=== PATIENT | male | born 1985 | race African-American/Black ===

== ENCOUNTER 2019-02-03 04:36 | Emergency (ER) | payer SELFPAY ==
[~2019-02-03] VITALS: Ht 172.7 cm; Wt 91.2 kg
[~2019-02-03 04:36] MED LIST: Thiamine HCl 100 MG in D5W 55 ML IVPB STA
[2019-02-03 04:40] VITALS: BP 120/60
--- NOTE | 2019-02-03 04:40 | NUR ---
ED Nurse Note: pt brought in by [facility] due to finding pt on the street and was uncoherent . pt is arousable to light pain. VSS.
[2019-02-03] MEDS ORDERED: Thiamine HCl 100mg/ml 2 ml Inj ONE (04:46)
--- NOTE | 2019-02-03 04:54 | Emergency Room Report ---
History of Present Illness General Chief Complaint: Alcohol Intoxication Source: EMS (Jun Mcmanus MD) Present Illness HPI The patient is brought in by [facility]. Apparently he was in the hallway of her apartment trying to get into a door. He thought that he was in [place]. They claim that his GCS was 15 however even though he was disoriented. During transport he became more unresponsive. He is vomiting. There is obvious coffee -ground material around his mouth. The patient is unable to give a history. They do not perform an Accu-Chek. They believe that the patient's been drinking alcohol. (Jun Mcmanus MD) Allergies: Coded Allergies: UNABLE TO ASSESS (Unverified , 02/03/19) Patient History Limited by: medical condition Past Medical History: see triage record Social History: Reports: alcohol use Social History Narrative Apparently from [place] Reviewed Nursing Documentation: PMH: Agreed; PSxH: Agreed (Jun Mcmanus MD) Nursing Documentation-PMH Past Medical History Deferred: Pt Cognitively Impaired (Jun Mcmanus MD) Review of Systems All Other Systems: limited (Jun Mcmanus MD) Physical Exam Vital Signs Date Time Temp Pulse Resp B/P (MAP) Pulse Ox O2 Delivery O2 Flow Rate FiO2 02/03/19 04:21 98.4 100 18 115/58 (77) 98 Room Air Sp02 EP Interpretation: reviewed, normal General Appearance: lethargic, other - GCS 13, Stupor Head: normocephalic, atraumatic Eyes: bilateral eye PERRL, bilateral eye abnormal EOM - Nystagmus, bilateral eye Scleral Injection ENT: moist mucus membranes - Gag present Neck: supple Respiratory: lungs clear, normal breath sounds Cardiovascular #1: regular rate, rhythm Cardiovascular #2: 2+ radial (R) Gastrointestinal: non tender, soft, other - Vomiting guaiac positive coffee grounds and foodstuff Genitourinary: no CVA tenderness Musculoskeletal: back normal Neurologic: DTRs symmetric - Decreased, sensory intact - To pain with withdrawal, no Babinski, other - Stupor, occasionally wakes and has slurred speech, nystagmus Psychiatric: other - Lethargic Skin: no rash (Jun Mcmanus MD) Medical Decision Making Diagnostic Impression: Primary Impression: Stupor Additional Impressions: UGI bleed Alcohol intoxication Qualified Codes: F10.929 - Alcohol use, unspecified with intoxication, unspecified ER Course Patient presents with altered level of consciousness vomiting guaiac positive material and possible alcohol ingestion. Differential includes alcohol intoxication, alcohol gastritis, electrolyte imbalance, PCP ingestion amongst other toxic compounds, head injury amongst others. Evaluation with EKG, CT of the head, chest x-ray and labs. Patient will be treated with IV hydration, Pepcid, thiamine and Zofran. Repeat neurologic evaluations need to be performed. Patient transiently combative. Restraints initially ordered but then not needed as patient again became lethargic. Gag is present and the patient is protecting his airway. EKG without injury. Labs significant for positive blood alcohol of 121 and positive THC. Glucose 145. Chest x-ray clear abdomen paucity of gas. Patient still lethargic. Signed out to Dr. Price Laboratory Tests Test 02/03/19 04:40 02/03/19 05:00 White Blood Count 7.6 K/UL (4.8-10.8) Red Blood Count 4.49 M/UL (4.70-6.10) L Hemoglobin 14.2 G/DL (14.2-18.0) Hematocrit 43.9 % (42.0-52.0) Mean Corpuscular Volume 98 FL (80-99) Mean Corpuscular Hemoglobin 31.5 PG (27.0-31.0) H Mean Corpuscular Hemoglobin Concent 32.2 G/DL (32.0-36.0) Red Cell Distribution Width 12.1 % (11.6-14.8) Platelet Count 257 K/UL (150-450) Mean Platelet Volume 6.2 FL (6.5-10.1) L Neutrophils (%) (Auto) 60.5 % (45.0-75.0) Lymphocytes (%) (Auto) 25.0 % (20.0-45.0) Monocytes (%) (Auto) 11.0 % (1.0-10.0) H Eosinophils (%) (Auto) 1.3 % (0.0-3.0) Basophils (%) (Auto) 2.2 % (0.0-2.0) H Prothrombin Time 9.4 SEC (9.30-11.50) Prothrombin Time INR 0.9 (0.9-1.1) PTT 19 SEC (23-33) L Sodium Level 141 MMOL/L (136-145) Potassium Level 3.8 MMOL/L (3.5-5.1) Chloride Level 107 MMOL/L (98-107) Carbon Dioxide Level 24 MMOL/L (21-32) Anion Gap 10 mmol/L (5-15) Blood Urea Nitrogen 13 mg/dL (7-18) Creatinine 1.1 MG/DL (0.55-1.30) Estimate Glomerular Filtration Rate > 60 mL/min (>60) Glucose Level 145 MG/DL (74-106) H Calcium Level 8.5 MG/DL (8.5-10.1) Total Bilirubin 0.4 MG/DL (0.2-1.0) Aspartate Amino Transferase (AST) 28 U/L (15-37) Alanine Aminotransferase (ALT) 39 U/L (12-78) Alkaline Phosphatase 69 U/L (46-116) Total Creatine Kinase 184 U/L (26-308) Troponin I 0.010 ng/mL (0.000-0.056) Total Protein 7.5 G/DL (6.4-8.2) Albumin 3.7 G/DL (3.4-5.0) Globulin 3.8 g/dL Albumin/Globulin Ratio 1.0 (1.0-2.7) Lipase 86 U/L (73-393) Salicylates Level 0.7 ug/mL (2.8-20) L Acetaminophen Level < 2 MCG/ML (10-30) L Serum Alcohol 121 mg/dL Urine Color Yellow Urine Appearance Clear Urine pH 5 (4.5-8.0) Urine Specific [place] 1.030 (1.005-1.035) Urine Protein 1+ (NEGATIVE) H Urine Glucose (UA) Negative (NEGATIVE) Urine Ketones 1+ (NEGATIVE) H Urine Blood 1+ (NEGATIVE) H Urine Nitrite Negative (NEGATIVE) Urine Bilirubin Negative (NEGATIVE) Urine Urobilinogen Normal MG/DL (0.0-1.0) Urine Leukocyte Esterase Negative (NEGATIVE) Urine RBC 2-4 /HPF (0 - 0) H Urine WBC 0-2 /HPF (0 - 0) Urine Squamous Epithelial Cells Few /LPF (NONE/OCC) Urine Amorphous Sediment Moderate /LPF (NONE) H Urine Bacteria Few /HPF (NONE) Urine Fine Granular Casts 0-2 /LPF (NONE) H Urine Opiates Screen Negative (NEGATIVE) Urine Barbiturates Screen Negative (NEGATIVE) Phencyclidine (PCP) Screen Negative (NEGATIVE) Urine Amphetamines Screen Negative (NEGATIVE) Urine Benzodiazepines Screen Negative (NEGATIVE) Urine Cocaine Screen Negative (NEGATIVE) Urine Marijuana (THC) Screen Positive (NEGATIVE) H (Jun Mcmanus MD) ER Course Patient was pending repeat evaluation at this time was told by nursing staff that the patient was awake was getting changed and the IV had been removed Going to see the patient the room was empty Asking further the nurse reported that the patient was possibly in the restroom however he was not Unfortunately I was not able to medically reevaluate the patient myself however the nurse reports patient was fully awake and alert CT head on review was also negative And patient left prior to final reevaluation Labs Test 02/03/19 04:40 02/03/19 05:00 White Blood Count 7.6 K/UL (4.8-10.8) Red Blood Count 4.49 M/UL (4.70-6.10) Hemoglobin 14.2 G/DL (14.2-18.0) Hematocrit 43.9 % (42.0-52.0) Mean Corpuscular Volume 98 FL (80-99) Mean Corpuscular Hemoglobin 31.5 PG (27.0-31.0) Mean Corpuscular Hemoglobin Concent 32.2 G/DL (32.0-36.0) Red Cell Distribution Width 12.1 % (11.6-14.8) Platelet Count 257 K/UL (150-450) Mean Platelet Volume 6.2 FL (6.5-10.1) Neutrophils (%) (Auto) 60.5 % (45.0-75.0) Lymphocytes (%) (Auto) 25.0 % (20.0-45.0) Monocytes (%) (Auto) 11.0 % (1.0-10.0) Eosinophils (%) (Auto) 1.3 % (0.0-3.0) Basophils (%) (Auto) 2.2 % (0.0-2.0) Prothrombin Time 9.4 SEC (9.30-11.50) Prothromb Time International Ratio 0.9 (0.9-1.1) Activated Partial Thromboplast Time 19 SEC (23-33) Sodium Level 141 MMOL/L (136-145) Potassium Level 3.8 MMOL/L (3.5-5.1) Chloride Level 107 MMOL/L (98-107) Carbon Dioxide Level 24 MMOL/L (21-32) Anion Gap 10 mmol/L (5-15) Blood Urea Nitrogen 13 mg/dL (7-18) Creatinine 1.1 MG/DL (0.55-1.30) Estimat Glomerular Filtration Rate > 60 mL/min (>60) Glucose Level 145 MG/DL (74-106) Calcium Level 8.5 MG/DL (8.5-10.1) Total Bilirubin 0.4 MG/DL (0.2-1.0) Aspartate Amino Transf (AST/SGOT) 28 U/L (15-37) Alanine Aminotransferase (ALT/SGPT) 39 U/L (12-78) Alkaline Phosphatase 69 U/L (46-116) Total Creatine Kinase 184 U/L (26-308) Troponin I 0.010 ng/mL (0.000-0.056) Total Protein 7.5 G/DL (6.4-8.2) Albumin 3.7 G/DL (3.4-5.0) Globulin 3.8 g/dL Albumin/Globulin Ratio 1.0 (1.0-2.7) Lipase 86 U/L (73-393) Salicylates Level 0.7 ug/mL (2.8-20) Acetaminophen Level < 2 MCG/ML (10-30) Serum Alcohol 121 mg/dL Urine Color Yellow Urine Appearance Clear Urine pH 5 (4.5-8.0) Urine Specific [place] 1.030 (1.005-1.035) Urine Protein 1+ (NEGATIVE) Urine Glucose (UA) Negative (NEGATIVE) Urine Ketones 1+ (NEGATIVE) Urine Blood 1+ (NEGATIVE) Urine Nitrite Negative (NEGATIVE) Urine Bilirubin Negative (NEGATIVE) Urine Urobilinogen Normal MG/DL (0.0-1.0) Urine Leukocyte Esterase Negative (NEGATIVE) Urine RBC 2-4 /HPF (0 - 0) Urine WBC 0-2 /HPF (0 - 0) Urine Squamous Epithelial Cells Few /LPF (NONE/OCC) Urine Amorphous Sediment Moderate /LPF (NONE) Urine Bacteria Few /HPF (NONE) Urine Fine Granular Casts 0-2 /LPF (NONE) Urine Opiates Screen Negative (NEGATIVE) Urine Barbiturates Screen Negative (NEGATIVE) Phencyclidine (PCP) Screen Negative (NEGATIVE) Urine Amphetamines Screen Negative (NEGATIVE) Urine Benzodiazepines Screen Negative (NEGATIVE) Urine Cocaine Screen Negative (NEGATIVE) Urine Marijuana (THC) Screen Positive (NEGATIVE) (Davian Price DO) EKG Diagnostic Results Rate: normal Rhythm: NSR ST Segments: no acute changes (Jun Mcmanus MD) Rhythm Strip Diag. Results EP Interpretation: yes Rhythm: NSR, no PVC's, no ectopy (Jun Mcmanus MD) Chest X-Ray Diagnostic Results Chest X-Ray Diagnostic Results : Chest X-Ray Ordered: Yes # of Views/Limited/Complete: 1 View Indication: Other EP Interpretation: Yes Interpretation: no consolidation, no effusion, no pneumothorax Impression: No acute disease Electronically Signed by: Electronically signed by Jun Mcmanus MD (Jun Mcmanus MD) Other X-Ray Diagnostic Results Other X-Ray Diagnostic Results : X-Ray ordered: Abdomen # of Views/Limited Vs Complete: 1 View Indication: Other EP Interpretation: Yes Interpretation: nonspecific bowel gas, no sbo, other - Paucity of gas Impression: Other Electronically Signed by: Electronically signed by Jun Mcmanus MD (Jun Mcmanus MD) CT/MRI/US Diagnostic Results CT/MRI/US Diagnostic Results : Impression CT head no acute disease (Davian Price DO) Last Vital Signs Date Time Temp Pulse Resp B/P (MAP) Pulse Ox O2 Delivery O2 Flow Rate FiO2 02/03/19 04:40 98.4 84 18 120/60 98 Room Air 02/03/19 04:40 99 Status: improved (Jun Mcmanus MD) Status: improved (Davian Price DO) Disposition: ELOPED Condition: Unknown Jun Mcmanus MD Feb 03, 2019 04:54 Davian Price DO Feb 03, 2019 12:34
--- NOTE | 2019-02-03 04:55 | NUR ---
ED Nurse Note: When providing care for pt, pt became aggresie and combative. security was called and pt calmed down.
[2019-02-03 05:00] LABS: BASOPHILS % (AUTO) 2.2 % (0.0-2.0); EOSINOPHILS % (AUTO) 1.3 % (0.0-3.0); HEMATOCRIT 43.9 % (42.0-52.0); HEMOGLOBIN 14.2 G/DL (14.2-18.0); MEAN CORPUSCULAR VOLUME 98 FL (80-99); NEUTROPHILS % (AUTO) 60.5 % (45.0-75.0); PLATELET COUNT 257 K/UL (150-450); RED BLOOD COUNT 4.49 M/UL (4.70-6.10); RED CELL DISTRIBUTION WIDTH 12.1 % (11.6-14.8); WHITE BLOOD COUNT 7.6 K/UL (4.8-10.8)
--- NOTE | 2019-02-03 05:01 | NUR ---
ED Nurse Note: restraint was ordered by EDMD initially due to aggressive behavior, but resident camed down after security came and spoke to PT. Addendum: 02/03/19 at 0534 by PADMINI ED Nurse Note: restraint was ordered by EDMD initially due to aggressive behavior, but resident camed down after security came and spoke to PT. SHADI then D/C'd the restraint order. Restraint was not apllied to pt.
[2019-02-03 05:14] LABS: ANION GAP 10 mmol/L (5-15); BLOOD UREA NITROGEN 13 mg/dL (7-18); CALCIUM 8.5 MG/DL (8.5-10.1); CARBON DIOXIDE 24 MMOL/L (21-32); CHLORIDE 107 MMOL/L (98-107); CREATININE 1.1 MG/DL (0.55-1.30); POTASSIUM 3.8 MMOL/L (3.5-5.1); SODIUM 141 MMOL/L (136-145)
[2019-02-03 05:15] LABS: INR 0.9 (0.9-1.1)
[2019-02-03 05:18] LABS: ALANINE AMINOTRANSFERASE 39 U/L (12-78); ALBUMIN 3.7 G/DL (3.4-5.0); ALKALINE PHOSPHATASE 69 U/L (46-116); ASPARTATE AMINO TRANSFERASE 28 U/L (15-37); BILIRUBIN,TOTAL 0.4 MG/DL (0.2-1.0); CREATINE KINASE 184 U/L (26-308)
--- NOTE | 2019-02-03 05:34 | NUR ---
ED Nurse Note: pt is curretly in bed with eyes closed. VSS.
[2019-02-03 05:44] LABS: APPEARANCE,URINE CLEAR; BILIRUBIN, URINE NEGATIVE (NEGATIVE); GLUCOSE, URINE (UA) NEGATIVE (NEGATIVE); KETONES,URINE 1+ (NEGATIVE); LEUKOCYTE ESTERASE ,URINE NEGATIVE (NEGATIVE); NITRITE,URINE NEGATIVE (NEGATIVE); PH,URINE 5 (4.5-8.0); PROTEIN,URINE 1+ (NEGATIVE); UROBILINOGEN,URINE NORMAL MG/DL (0.0-1.0)
[2019-02-03 06:05] LABS: COLOR,URINE YELLOW
--- NOTE | 2019-02-03 07:10 | NUR ---
ED Nurse Note: Report received from Jessica KAUFMAN, reports that Head CT was done already. Pt sleeping on bed with no acute distress.
--- NOTE | 2019-02-03 07:13 | NUR ---
ED Nurse Note: report given to MANDEEP Robles.
[2019-02-03 07:15] VITALS: BP 118/78
--- NOTE | 2019-02-03 07:49 | NUR ---
ED Nurse Note: Pt taken to CT.
--- NOTE | 2019-02-03 08:00 | NUR ---
ED Nurse Note: Pt came back from CT and stable.
[2019-02-03 09:15] VITALS: BP 108/75
--- NOTE | 2019-02-03 09:25 | NUR ---
Jacque ryan in EDM - 02/03/19 at 0930 by ROSALIE ED Nurse Note: Waiting for admission packet.
--- NOTE | 2019-02-03 09:59 | Diagnostic Imaging Report ---
EXAM: CT Head Without Intravenous Contrast CLINICAL HISTORY: Altered mental status TECHNIQUE: Axial computed tomography images of the head/brain without intravenous contrast. CTDI is 70.38 mGy and DLP is 1393 mGy-cm. One or more of the following dose reduction techniques were used: automated exposure control, adjustment of the mA and/or kV according to patient size, use of iterative reconstruction technique. Coronal reformatted images were created and reviewed. COMPARISON: No relevant prior studies available. FINDINGS: Brain: Unremarkable. No evidence of acute intracranial hemorrhage. No significant white matter disease. No edema. No mass effect or midline shift. Ventricles: Unremarkable. No ventriculomegaly. Bones/joints: Unremarkable. No depressed skull fracture. Soft tissues: Unremarkable. Sinuses: Unremarkable as visualized. No acute sinusitis. Mastoid air cells: Unremarkable as visualized. No mastoid effusion. IMPRESSION: Unremarkable noncontrast CT of the head/brain.
[2019-02-03 10:00] VITALS: BP 108/75
--- NOTE | 2019-02-03 10:01 | Diagnostic Imaging Report ---
EXAM: XR Abdomen, one view CLINICAL HISTORY: PAIN TECHNIQUE: Frontal view of the abdomen/pelvis. COMPARISON: No relevant prior studies available. FINDINGS: Intraperitoneal space: No evidence of intraperitoneal free air. Gastrointestinal tract: Relative paucity bowel gas, within nonspecific nonobstructive pattern. Organs: The renal shadows appear unremarkable. No evidence of organomegaly. No abnormal calcifications in the abdomen or pelvis. Bones/joints: Unremarkable. IMPRESSION: No acute findings.
--- NOTE | 2019-02-03 10:04 | Diagnostic Imaging Report ---
EXAM: XR Chest, 1 View CLINICAL HISTORY: COUGH TECHNIQUE: Frontal view of the chest. COMPARISON: No relevant prior studies available. FINDINGS: Lungs: Low lung volumes, likely related to shallow inspiration. Mildly increased interstitial markings. The lungs are otherwise clear without focal consolidation. Pleural space: Unremarkable. The costophrenic angles are sharp. No visible pneumothorax. Heart: Unremarkable. No cardiomegaly. Mediastinum: Unremarkable. Bones/joints: Unremarkable. IMPRESSION: 1. Low lung volumes, likely related to shallow inspiration. 2. Mildly increased interstitial markings. This may be related to bronchovascular crowding from the decreased lung volumes, although differential diagnosis may also include mild pulmonary vascular congestion or a mild interstitial pneumonitis. No focal consolidation.
--- NOTE | 2019-02-05 11:07 | Cardiology Report ---
APPROVED REPORT EKG Measurement Heart [id number] Normal sinus rhythm Normal ECG
== END 2019-02-03 10:00 | disposition left against medical advice (07) ==
LOC: EDBD 04:36 → EMR 05:20
DX: R40.1 Stupor (principal); K92.2 Gastrointestinal hemorrhage, unspecified; F10.129 Alcohol abuse with intoxication, unspecified; R11.10 Vomiting, unspecified; R10.9 Unspecified abdominal pain; R05 Cough
CPT/HCPCS: 36415; 70450; 71045; 74018; 80053; 80307; 81003; 82550; 83690; 84484; 85025; 85610; 85730; 93005; 96365; 96375; 99284; G0480; J2405; S0028; 80329; 96361; 96374